=== PATIENT | female | born 1955 | race American Indian/Alaskan Native ===

== ENCOUNTER 2017-10-01 15:20 | Outpatient (CLI) | payer BC, OTHER ==
--- NOTE | 2017-10-02 12:20 | Magnetic Resonance Report ---
MRI RIGHT KNEE WITHOUT CONTRAST: 10/01/17 16:00:00 CLINICAL: Left knee pain. . TECHNIQUE: Sagittal proton density, sagittal T2 fat sat, coronal T1, coronal and axial proton density fat sat and sagittal gradient T* sequences on a 1.5 Constance magnet. FINDINGS: The medial and lateral menisci are intact. Mild osteoarthritis with preservation of the joint spaces and small medial and lateral osteophytes. The anterior and posterior cruciate ligaments are intact. Intact collateral ligaments. Intact posterolateral corner structures including the popliteus tendon. The overall marrow signal is normal. There is an osteochondral defect of the anterior aspect of the lateral femoral condyle. No loose body. Small joint effusion. Chondromalacia patella with a full-thickness defect of the inferior lateral patellar cartilage. The patellar retinaculum and tendon are intact. No popliteal cyst. IMPRESSION: 1. Osteochondral lesion of the lateral femoral condyle. 2. Small knee joint effusion but no loose body identified. 3. 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 4. No meniscal or ligamentous injury.
--- NOTE | 2017-10-02 12:47 | Magnetic Resonance Report ---
MRI RIGHT SHOULDER WITHOUT CONTRAST: 10/01/17 CLINICAL: Right shoulder pain. TECHNIQUE: Coronal T1, coronal T2, coronal proton density fat saturation, sagittal proton density fat saturation and axial gradient echo T* sequences on a 1.5 Constance magnet. FINDINGS: The quality of several sequences is degraded by motion. Type I acromion. Moderate acromioclavicular joint arthritis with impingement of the supraspinatus tendon. Partial-thickness tear of the supraspinatus tendon proximal to its attachment. Mild subacromial and subdeltoid fluid. The infraspinatus, subscapularis and teres minor tendons are intact. Intact long head of the biceps tendon and glenoid labrum. No joint effusion. Normal marrow signal with no bone contusion or fracture. IMPRESSION: 1. Supraspinatus tendon partial thickness tear. 2. Acromioclavicular joint arthritis with impingement.
== END 2017-10-01 15:21 | disposition home or self-care (01) ==
LOC: MRI 15:20
PROVIDERS: ATTEND Orthopaedic Surgery
DX: M75.101 Unspecified rotator cuff tear or rupture of right shoulder, not specified as traumatic (principal); M19.011 Primary osteoarthritis, right shoulder; M22.42 Chondromalacia patellae, left knee; M89.9 Disorder of bone, unspecified
CPT/HCPCS: 73721

== ENCOUNTER 2018-02-03 08:25 | Outpatient (CLI) | payer BC, OTHER ==
--- NOTE | 2018-02-03 14:26 | Mammography Report ---
BILATERAL MAMMOGRAM: FINDINGS: The breast tissue is heterogeneously dense, which could obscure detection of small masses (approximately 50%-75% glandular). No mass, distortion, suspicious calcification, or skin change is seen. There is a biopsy marker in the medial right breast. No interval changes compared to exams dating back to August 2015. CAD was utilized. IMPRESSION: Negative mammogram. There is no mammographic evidence of malignancy. RECOMMENDATION: Follow-up per ACS guidelines. BI-RADS CATEGORY: 1 = Negative ACR BI-RADS MAMMOGRAPHIC CODES: 0 = Needs additional imaging evaluation; 1 = Negative; 2 = Benign; 3 = Probably benign; 4 = Suspicious; 5 = Malignant; 6 = Known biopsy-proven malignancy COMMENT: 1. Dense breast tissue, i.e., adenosis, fibrocystic changes, etc., may obscure an underlying neoplasm. 2. Approximately 10% of cancers are not detected with mammography. 3. A negative mammography report should not delay biopsy if a clinically suspicious mass is present. COMMENT: Patient follow-up letters are generated in [employer].
== END 2018-02-03 08:26 | disposition home or self-care (01) ==
LOC: MAMMO 08:25
PROVIDERS: ATTEND Family Medicine
DX: Z12.31 Encounter for screening mammogram for malignant neoplasm of breast (principal)
CPT/HCPCS: 77067

== ENCOUNTER 2019-10-12 15:11 | Outpatient (CLI) | payer BC ==
--- NOTE | 2019-10-16 08:54 | Mammography Report ---
DIGITAL SCREENING MAMMOGRAM WITH CAD, 10/12/2019 INDICATION: Routine screening mammography. Previous right benign biopsy. TECHNIQUE: Digital bilateral 2D mammography was obtained in the craniocaudal and mediolateral obliq ue projections. This examination was interpreted with the benefit of Computer-Aided Detection analysi s. COMPARISON: 02/03/2018 and 10/26/2016 FINDINGS: Breast Density: The breasts are heterogeneously dense, which may obscure small masses. There is no evidence of dominant mass, suspicious calcifications or architectural distortion in eithe r breast. A right inner biopsy clip. IMPRESSION: No mammographic evidence of malignancy. Follow up recommendation: Routine yearly BI-RADS Category 2: Benign. A "normal" or negative report should not discourage follow up or biopsy of a clinically significant f inding. A written summary of these findings will be mailed to the patient. The patient will be entered into a mammography reporting system which will generate a reminder letter for the patient's next appointmen t at the appropriate interval. The [employer] recommends yearly mammograms starting at age 40 and continuing as l arjun as a woman is in good health. Breast MRI is recommended for women with an approximate 20-25% or greater lifetime risk of breast cancer, including women with a strong family history of breast or ova nayana cancer or who have been treated for Hodgkin's disease. Signer Name: Avila Graf MD Signed: 10/16/2019 8:49 AM Workstation Name: [id number]
== END 2019-10-12 15:12 | disposition home or self-care (01) ==
LOC: MAMMO 15:11
PROVIDERS: ATTEND Family Medicine
DX: Z12.31 Encounter for screening mammogram for malignant neoplasm of breast (principal)
CPT/HCPCS: 77067

== ENCOUNTER 2020-11-01 09:12 | Outpatient (CLI) | payer MEDICARE, BC ==
--- NOTE | 2020-11-01 12:10 | Mammography Report ---
DIGITAL SCREENING MAMMOGRAM WITH CAD, 11/01/2020 CLINICAL INFORMATION / INDICATION: Routine screening mammography. TECHNIQUE: Digital bilateral 2D mammography was obtained in the craniocaudal and mediolateral obliqu e projections. This examination was interpreted with the benefit of Computer-Aided Detection analysis . COMPARISON: 02/03/2018, 10/12/2019 FINDINGS: Breast Density: There are scattered areas of fibroglandular density. No dominant mass, suspicious calcifications, or architectural distortion in either breast. There is a stable nodular density in the right breast at 3:00 with associated biopsy clip. Overall, n o significant interval change. IMPRESSION: No mammographic evidence of malignancy. Follow up recommendation: Routine yearly BI-RADS Category 2: Benign. A "normal" or negative report should not discourage follow up or biopsy of a clinically significant f inding. A written summary of these findings will be mailed to the patient. The patient will be entered into a mammography reporting system which will generate a reminder letter for the patient's next appointmen t at the appropriate interval. The [employer] recommends yearly mammograms starting at age 40 and continuing as l arjun as a woman is in good health. Breast MRI is recommended for women with an approximate 20-25% or greater lifetime risk of breast cancer, including women with a strong family history of breast or ova nayana cancer or who have been treated for Hodgkin's disease. Signer Name: Laura Williamson MD Signed: 11/01/2020 12:06 PM Workstation Name: [id number]
== END 2020-11-01 09:13 | disposition home or self-care (01) ==
LOC: MAMMO 09:12
PROVIDERS: ATTEND Family Medicine
DX: Z12.31 Encounter for screening mammogram for malignant neoplasm of breast (principal); N64.89 Other specified disorders of breast
CPT/HCPCS: 77067

== ENCOUNTER 2021-11-14 08:57 | Outpatient (CLI) | payer MEDICARE, BC ==
--- NOTE | 2021-11-17 12:51 | Mammography Report ---
DIGITAL SCREENING MAMMOGRAM WITH CAD, 11/14/2021 CLINICAL INFORMATION / INDICATION: Routine screening mammography. SCREENING MAMMOGRAM TECHNIQUE: Digital bilateral 2D mammography was obtained in the craniocaudal and mediolateral obliqu e projections. This examination was interpreted with the benefit of Computer-Aided Detection analysis . COMPARISON: 03/03/2012 through 11/01/2020. FINDINGS: Breast Density: There are scattered areas of fibroglandular density. No dominant mass, suspicious calcifications, or architectural distortion in either breast. There is a right biopsy clip. A small benign intramammary lymph node laterally on the left is stable. No new abnormality is seen. IMPRESSION: No mammographic evidence of malignancy. Follow up recommendation: Routine yearly BI-RADS Category 2: BENIGN. A "normal" or negative report should not discourage follow up or biopsy of a clinically significant f inding. A written summary of these findings will be mailed to the patient. The patient will be entered into a mammography reporting system which will generate a reminder letter for the patient's next appointmen t at the appropriate interval. The [employer] recommends yearly mammograms starting at age 40 and continuing as l arjun as a woman is in good health. Breast MRI is recommended for women with an approximate 20-25% or greater lifetime risk of breast cancer, including women with a strong family history of breast or ova nayana cancer or who have been treated for Hodgkin's disease. Signer Name: Rafiq Jeffrey MD Signed: 11/17/2021 12:47 PM Workstation Name: [id number]
== END 2021-11-14 08:58 | disposition home or self-care (01) ==
LOC: MAMMO 08:57
PROVIDERS: ATTEND Family Medicine
DX: Z12.31 Encounter for screening mammogram for malignant neoplasm of breast (principal)
CPT/HCPCS: 77067